=== PATIENT | female | born 1960 | race Caucasian/White ===

== ENCOUNTER 2021-09-09 15:41 | Emergency (ER) | payer OTHER ==
[2021-09-09] MEDS ORDERED: ACETAMINOPHEN TAB 325 MG TAB PO STA (17:13)
--- NOTE | 2021-09-09 17:17 | ED ---
General Adult HPI - General Chief complaint: Back Pain/Injury Stated complaint: Vomiting,Abd pain Time Seen by Provider: 09/09/21 16:49 Source: patient, RN notes reviewed Mode of arrival: ambulatory Limitations: no limitations - History of Present Illness Initial comments: 61-year-old female presents to the emergency department for evaluation of right flank and back pain, onset this morning. Patient states she experienced an episode of nausea and vomiting after taking her vitamins. Patient is unable to describe her pain other than that it is a persistent discomfort. States she is concerned about a possible kidney stone. Declines anything stronger than Tylenol for pain and is not currently nauseous. States she thinks her back pain is due to snowblowing after a large snowfall yesterday. Denies fever, chills, chest pain, shortness of breath, difficulty breathing, abdominal pain, constipation, diarrhea, dysuria, or hematuria. - Related Data Allergies Allergy/AdvReac Type Severity Reaction Status Date / Time No Known Allergies Allergy Verified 09/09/21 16:00 Review of Systems ROS Statement: Those systems with pertinent positive or pertinent negative responses have been documented in the HPI. ROS Other: All systems not noted in ROS Statement are negative. Past Medical History Past Medical History: No Reported History History of Any Multi-Drug Resistant Organisms: None Reported Past Surgical History: No Surgical Hx Reported Past Psychological History: No Psychological Hx Reported Smoking Status: Former smoker Past Alcohol Use History: Occasional Past Drug Use History: None Reported General Exam Limitations: no limitations (Well-developed, well-nourished female in no acute distress. Initial temperature 98.6, pulse 88, respirations 18, blood pressure 125/72, and pulse ox 100% on room air.) General appearance: alert, in no apparent distress ENT exam: Present: normal exam, normal oropharynx, mucous membranes moist Neck exam: Present: normal inspection, full ROM. Absent: tenderness, meningismus, lymphadenopathy Respiratory exam: Present: normal lung sounds bilaterally. Absent: respiratory distress, wheezes, rales, rhonchi, stridor Cardiovascular Exam: Present: regular rate, normal rhythm, normal heart sounds. Absent: systolic murmur, diastolic murmur, rubs, gallop, clicks GI/Abdominal exam: Present: soft, normal bowel sounds. Absent: distended, tenderness, guarding, rebound, rigid Back exam: Present: normal inspection, full ROM. Absent: CVA tenderness (R), CVA tenderness (L), muscle spasm, paraspinal tenderness, vertebral tenderness Neurological exam: Present: alert, oriented X3, CN II-XII intact Psychiatric exam: Present: normal affect, normal mood Skin exam: Present: warm, dry, intact, normal color. Absent: rash Course Vital Signs 09/09/21 09/09/21 09/09/21 15:56 17:45 21:00 Temperature 98.6 F 98.2 F Pulse Rate 88 94 92 Respiratory 18 18 16 Rate Blood Pressure 125/72 137/74 130/77 O2 Sat by Pulse 100 100 98 Oximetry 09/09/21 22:59 Temperature 97.8 F Pulse Rate 93 Respiratory 18 Rate Blood Pressure 136/70 O2 Sat by Pulse 97 Oximetry - Reevaluation(s) Reevaluation #1: 09/09/21 18:06 Upon reevaluation, patient appears uncomfortable and localizes pain in the right lower quadrant as well as the right low back. States she has not achieved any relief with Tylenol, but is willing to try some Motrin. Was also agreeable to CAT scan of the abdomen and pelvis. 09/09/21 20:25 Patient resting comfortably at this time. States her pain is resolved. Updated on plan of care including ultrasound. Patient is agreeable with this plan. 09/09/21 22:[address] Calixto regarding findings from CT and ultrasound. He recommends patient be seen by gynecology oncology. Patient was provided with suggested follow up information. Discussed importance of timely follow up. Was given copies of CT and UTS on disc. Medical Decision Making - Medical Decision Making 61-year-old female with no significant past medical history and no routine medical care presents to the emergency department for evaluation of right lower quadrant abdominal pain. Upon exam, patient is well-appearing though moderately uncomfortable. She declines anything other than Tylenol or Motrin for pain. Localizes pain to the right lower quadrant; it does not radiate nor is worsened with palpation or movement. Also has low back discomfort though she attributes this to snowblowing yesterday. This discomfort is reproducible with activity and is musculoskeletal in nature. CT of the abdomen and pelvis was obtained showing a concerning pelvic mass appearing to arise from the right ovary. 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 Laboratory studies were reviewed and are unremarkable. Pain resolved and patient able to move freely. Tolerating oral intake. Discussed these findings with Dr. Calixto, data entry manager, who recommends the patient be seen by gynecology oncology. Patient was advised of this recommendation and was agreeable. She does not have a PCP to follow up with. Return parameters were discussed in detail. Patient verbalizes understanding and agrees with this plan. This patient's care was discussed with my attending Dr. Field. - Lab Data Result diagrams: 09/09/21 17:21 09/09/21 17:21 Lab Results 09/09/21 09/09/21 09/09/21 Range/Units 17:21 17:21 17:21 WBC 11.3 H (3.8-10.6) k/uL RBC 4.86 (3.80-5.40) m/uL Hgb 13.7 (11.4-16.0) gm/dL Hct 42.0 (34.0-46.0) % MCV 86.5 (80.0-100.0) fL MCH 28.3 (25.0-35.0) pg MCHC 32.7 (31.0-37.0) g/dL RDW 14.4 (11.5-15.5) % Plt Count 346 (150-450) k/uL MPV 7.0 Neutrophils % 86 % Lymphocytes % 9 % Monocytes % 3 % Eosinophils % 0 % Basophils % 0 % Neutrophils # 9.8 H (1.3-7.7) k/uL Lymphocytes # 1.0 (1.0-4.8) k/uL Monocytes # 0.4 (0-1.0) k/uL Eosinophils # 0.0 (0-0.7) k/uL Basophils # 0.0 (0-0.2) k/uL Sodium 136 L (137-145) mmol/L Potassium 4.3 (3.5-5.1) mmol/L Chloride 103 (98-107) mmol/L Carbon Dioxide 24 (22-30) mmol/L Anion Gap 9 mmol/L BUN 12 (7-17) mg/dL Creatinine 0.55 (0.52-1.04) mg/dL Est GFR (CKD-EPI)AfAm >90 (>60 ml/min/1.73 sqM) Est GFR (CKD-EPI)NonAf >90 (>60 ml/min/1.73 sqM) Glucose 116 H (74-99) mg/dL Calcium 9.6 (8.4-10.2) mg/dL Total Bilirubin 0.7 (0.2-1.3) mg/dL AST 29 (14-36) U/L ALT 31 (4-34) U/L Alkaline Phosphatase 101 (38-126) U/L Total Protein 7.3 (6.3-8.2) g/dL Albumin 4.4 (3.5-5.0) g/dL Urine Color Yellow Urine Appearance Clear (Clear) Urine pH 6.5 (5.0-8.0) Ur Specific [place] 1.022 (1.001-1.035) Urine Protein Negative (Negative) Urine Glucose (UA) Negative (Negative) Urine Ketones 2+ H (Negative) Urine Blood Negative (Negative) Urine Nitrite Negative (Negative) Urine Bilirubin Negative (Negative) Urine Urobilinogen <2.0 (<2.0) mg/dL Ur Leukocyte Esterase Negative (Negative) - Radiology Data Radiology results: report reviewed, image reviewed CT of the abdomen and pelvis with contrast was obtained. Report was reviewed in its entirety. Impression per Dr. Cummings is sharply marginated rounded pelvic mass consistent with a tumor or cyst arising from the right ovary. Follow-up is recommended. Normal appendix. Transvaginal ultrasound was obtained. Report was reviewed in its entirety. Impression per Dr. 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 Disposition Clinical Impression: Abdominal pain, Ovarian mass, right Disposition: HOME SELF-CARE Condition: Stable Instructions (If sedation given, give patient instructions): Acute Abdominal Pain (ED) Additional Instructions: Please call to schedule an appointment with Dr. Geronimo ([phone]) at [facility] on Saturday morning. Take copies of CT and ultrasound with you to your appointment. Take Tylenol for discomfort. May take motrin anytime after midnight. Return to the emergency department with any new, worsening, or concerning symptoms. Is patient prescribed a controlled substance at d/c from ED?: No Referrals: None,Stated [Primary Care Provider] - 1-2 days Mohan Geronimo MD [STAFF PHYSICIAN] - As Soon As Possible Time of Disposition: 22:37
[2021-09-09 17:36] LABS: Appearance,Urine Clear (Clear); Bilirubin,Urine Negative (Negative); Blood,Urine Negative (Negative); Color,Urine Yellow; Glucose,Urine (UA) Negative (Negative); Ketones,Urine 2+ (Negative); Leukocyte Esterase,Urine Negative (Negative); Nitrite,Urine Negative (Negative); PH, Urine 6.5 (5.0-8.0); Protein,Urine Negative (Negative); Specific Gravity,Urine 1.022 (1.001-1.035); Urobilinogen,Urine <2.0 mg/dL (<2.0)
[2021-09-09 17:42] LABS: Basophils % (A) 0 %; Eosinophils % (A) 0 %; HGB 13.7 gm/dL (11.4-16.0); Lymphocytes % (A) 9 %; MCH 28.3 pg (25.0-35.0); MCHC 32.7 g/dL (31.0-37.0); MCV 86.5 fL (80.0-100.0); Monocytes # (A) 0.4 k/uL (0-1.0); Monocytes % (A) 3 %; Neutrophils # (A) 9.8 k/uL (1.3-7.7); Neutrophils % (A) 86 %; Platelet Count 346 k/uL (150-450); RBC 4.86 m/uL (3.80-5.40); RDW 14.4 % (11.5-15.5); WBC 11.3 k/uL (3.8-10.6)
[2021-09-09 17:47] LABS: ALT 31 U/L (4-34); AST 29 U/L (14-36); African American GFR (CKD) >90 (>60 ml/min/1.73 sqM); Albumin 4.4 g/dL (3.5-5.0); Alkaline Phosphatase 101 U/L (38-126); Anion Gap 9 mmol/L; Blood Urea Nitrogen 12 mg/dL (7-17); Calcium 9.6 mg/dL (8.4-10.2); Carbon Dioxide 24 mmol/L (22-30); Chloride 103 mmol/L (98-107); Glucose 116 mg/dL (74-99); Non-African American GFR(CKD) >90 (>60 ml/min/1.73 sqM); Potassium 4.3 mmol/L (3.5-5.1); Sodium 136 mmol/L (137-145); Total Bilirubin 0.7 mg/dL (0.2-1.3); Total Protein 7.3 g/dL (6.3-8.2)
[2021-09-09] MEDS ORDERED: IBUPROFEN 600 MG TAB PO STA (18:04)
--- NOTE | 2021-09-09 18:46 | CT ---
EXAMINATION TYPE: CT abdomen pelvis w con DATE OF EXAM: 09/09/2021 COMPARISON: None HISTORY: RLQ pain CT DLP: 936.6 mGycm Automated exposure control for dose reduction was used. CONTRAST: Performed with IV Contrast, patient injected with 100 mL of Isovue 300. Images obtained from the diaphragm to the floor the pelvis with IV contrast. There are some mild subsegmental atelectasis at the lung bases. There is no pleural effusion. Heart s ize is normal. There is no pericardial effusion. Liver spleen stomach pancreas gallbladder appear normal. The bile ducts are not dilated. There is no adrenal mass. Kidneys show satisfactory contrast opacification. There is no hydronephrosi s. The bladder distends smoothly. There is no retroperitoneal adenopathy. Uterus is anteverted. The a ppendix is posterior and appears normal. There is a rounded soft tissue mass in the pelvis above the urinary bladder measuring 7.[address] and could be arising from the right ovary. This has density of 53 and could be hemorrhagic cyst. Margins are sharp. There is no mesenteric edema. There is no ascites or free air. There is no bowel obstruction. The lum bar vertebrae have normal alignment. Posterior elements are intact. Bony pelvis is intact. The hip anjel ints are intact. IMPRESSION: Sharply marginated rounded pelvic mass consistent with a tumor or cyst arising from the right ovary. Follow-up is recommended. Normal appendix.
--- NOTE | 2021-09-09 21:15 | US ---
EXAMINATION TYPE: US transvaginal DATE OF EXAM: 09/09/2021 COMPARISON: CT 2021 CLINICAL HISTORY: RLQ pain, cyst/mass. CT showed abnormality TECHNIQUE: Transvaginal (TV). Date of LMP: SUPPLEMENTAL NURSE, G0 EXAM MEASUREMENTS: Uterus: 5.6 x 3.0 x 2.4 cm Endometrial Stripe: 0.2 cm 1. Uterus: Anteverted Small in size. Heterogenous. 2. Endometrium: wnl 3. Right Ovary: Obscured by overlying bowel gas 4. Left Ovary: Obscured by overlying bowel gas 5. Bilateral Adnexa: right adnexal solid mass visualized, vascular, unable to determine origin = 6.8 x 5.7 x 6.0 cm. 6. 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
[2021-09-09] MEDS ORDERED: IBUPROFEN 600 MG STARTER PACK 4 TAB BTL PO STA (22:45)
[2021-09-09 23:01] VITALS: BP 136/70; PULSE 93; RESP 18; TEMP 97.8
== END 2021-09-09 22:59 | disposition home or self-care (01) ==
LOC: EC 15:41
DX: N83.9 Noninflammatory disorder of ovary, fallopian tube and broad ligament, unspecified (principal); R10.31 Right lower quadrant pain; Z87.891 Personal history of nicotine dependence
CPT/HCPCS: 36415; 80053; 85025; 81003; 76830; 74177; 99284; Q9967